=== PATIENT | male | born 1985 | race Caucasian/White ===

== ENCOUNTER 2021-08-03 20:20 | Emergency (ER) | payer OTHER ==
[2021-08-03] MEDS ORDERED: traMADol 50 MG Tab PO ONE (20:32)
[2021-08-03] MEDS ORDERED: Ketorolac 30 MG/ML SDV IM ONE (20:37)
[2021-08-03 20:45] VITALS: BP 157/84; PULSE 96
== END 2021-08-03 21:45 | disposition home or self-care (01) ==
LOC: FB.ED 20:31
DX: M25.552 Pain in left hip (principal)
CPT/HCPCS: 73502; 96372; 99000; 99283; A9270; J1885